=== PATIENT | male | born 1970 | race Caucasian/White ===

== ENCOUNTER 2017-08-10 18:10 | Emergency (ER) | payer BC ==
[~2017-08-10] VITALS: Ht 167.6 cm; Wt 77.5 kg
[2017-08-10 18:19] VITALS: TEMP 37; Ht 167.6 cm; Wt 77.5 kg
[2017-08-10] MEDS ORDERED: PROPARACAINE HCL 0.5% OP SOLN 15 ML BTL ONE (18:28)
[2017-08-10] MEDS ORDERED: CETITAB27 PO (19:07)
[2017-08-10] MEDS ORDERED: CIPROFLOXACIN HCL 0.3% OP SOLN 2.5 ML BTL OP ONE (19:30)
[2017-08-10 19:53] VITALS: BP 160/106; PULSE 79; O2SAT 96
--- NOTE | 2017-08-10 23:39 | EMERGENCY ROOM VISIT NOTE ---
ED Visit Note First contact with patient: 18:32 CHIEF COMPLAINT: Foreign body of the eye HISTORY OF PRESENT ILLNESS: This 46-year-old male patient presents to the emergency department complaining of pain and foreign body sensation in the left eye. 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 He was wearing protective gear yesterday, but believes he may have a piece of metal in his eye. There has been a constant moderate pain and irritation, redness and tearing in the eye. The vision has not been decreased over all. The patient does not wear contacts. The patient rates the pain as 4/10. The patient has not had previous injuries to this eye. Tetanus shot is reportedly up to date. REVIEW OF SYSTEMS: A 6 system review of systems was completed with positives and pertinent negatives listed in the HPI. ALLERGIES: No known allergies MEDICATIONS: See EMR PMH: See EMR SOCIAL HISTORY: Employed and lives locally PHYSICAL EXAM: Vital Signs: Reviewed Nurse's notes, vital signs stable. Visual acuity 20/20 bilateral. GENERAL: This is a white male, in no acute distress, but who is uncomfortable from the eye problem. Well-developed well-nourished. EYES: The pupils are equal round and reactive to light and accommodation. EOMs are full and without tenderness. There is watery discharge from the left eye which is injected. There is a metallic foreign body visible on the cornea along the medial left eye. The cornea was clear and no hyphema was seen. Fluorescein uptake was observed with ultraviolet light significant for a corneal abrasion only around the previous location of the foreign body. EMERGENCY DEPARTMENT COURSE: I examined the patient. Alcaine 2 drops were placed in the patient's left eye. A slit lamp exam was performed as above. Verbal consent was obtained to perform the procedure. The metal foreign body was removed using utilizing a tuberculin needle and cotton swab. Ciloxan two drops was placed in the patient's left eye. The patient was discharged home in good condition. Current/Historical Medications Scheduled PRN Cetirizine/Pseudoephedrine (Zyrtec-D Er 5MG/120MG), 1 TAB PO DAILY PRN for Seasonal Allergies Allergies Coded Allergies: No Known Allergies (Unverified , 08/10/17) Vital Signs Date Time Temp Pulse Resp B/P (MAP) Pulse Ox O2 Delivery O2 Flow Rate FiO2 08/10/17 19:53 79 20 160/106 96 08/10/17 18:19 37.0 79 20 160/106 96 Room Air Medications Administered Medications (Trade) Dose Ordered Sig/Mirtha Route Start Time Stop Time Status Last Admin Dose Admin Ciprofloxacin HCl (Ciprofloxacin 0.3% Op Soln) 2 drops NOW ONCE OP 08/10/17 19:30 08/10/17 19:31 DC 08/10/17 19:30 2 DROPS Departure Information Impression Primary Impression: Foreign body of left eye Dispostion Home / Self-Care Condition GOOD Referrals Cem Garcia M.D. (PCP) Forms HOME CARE DOCUMENTATION FORM, IMPORTANT VISIT INFORMATION Patient Instructions My [facility] [address] Additional Instructions You were seen and evaluated today on an emergency basis only. This is not a substitute for, or an effort to provide, complete comprehensive medical care. It is not possible to recognize and treat all injuries or illnesses in a single emergency department visit. For this reason it is recommended that you followup with your primary care physician with any ongoing or persistent symptoms. For baseline pain relief you may alternate ibuprofen and acetaminophen every 4 hours for pain control. Take 600 mg ibuprofen (Advil) and then 4 hours later take 1000 mg acetaminophen (Tylenol). Do not take more than 3000 mg acetaminophen in a single day. Use Ciloxan Eye Drops: Instill 1-2 drops into the conjunctival sac every 2 hours while awake for 2 days and 1-2 drops every 4 hours while awake for the next 5 days You are welcome to return to the emergency department anytime with new, worsening, or concerning symptoms.
== END 2017-08-10 19:53 | disposition home or self-care (01) ==
LOC: C.EDB 18:11 → C.EDD 19:53
DX: T15.02XA Foreign body in cornea, left eye, initial encounter (principal); X58.XXXA Exposure to other specified factors, initial encounter